=== PATIENT | male | born 1995 | race African-American/Black ===

== ENCOUNTER 2017-02-05 14:14 | Emergency (ER) | payer OTHER ==
[2017-02-05] MEDS ORDERED: Dexamethasone 4 MG TAB ONE (15:34)
[2017-02-05] MEDS ORDERED: Ibuprofen 800 MG TAB ONE (15:34)
== END 2017-02-05 15:30 | disposition home or self-care (01) ==
LOC: MADERS 14:14
DX: J06.9 Acute upper respiratory infection, unspecified (principal)
CPT/HCPCS: 99282; J8540

== ENCOUNTER 2017-06-11 09:42 | Emergency (ER) | payer OTHER ==
[2017-06-11] MEDS ORDERED: Naproxen 500 MG TAB ONE (10:01)
[2017-06-11] MEDS ORDERED: AMOXicillin 250 MG CAP ONE (10:01)
[2017-06-11] MEDS ORDERED: HYDROcodone/Acetaminophen 10/325 mg Tablet ONE (10:01)
== END 2017-06-11 10:05 | disposition home or self-care (01) ==
LOC: MADERS 09:42
DX: J03.90 Acute tonsillitis, unspecified (principal)
CPT/HCPCS: 99283

== ENCOUNTER 2017-09-25 09:10 | Emergency (ER) | payer OTHER | END 2017-09-25 09:35 | disposition home or self-care (01) | LOC: MADERS 09:10 | DX: J02.0 Streptococcal pharyngitis (principal) | CPT/HCPCS: 99282 ==

== ENCOUNTER 2019-10-10 18:17 | Emergency (ER) | payer OTHER ==
[2019-10-11 18:18] LABS: SARS-CoV-2 MS2 Positive; SARS-CoV-2 N Gene Negative; SARS-CoV-2 S Gene Negative; SARS-CoV-2 by NAA Not Detected (NotDetected); SARS-CoV-2 orf1ab Negative
== END 2019-10-10 18:47 | disposition home or self-care (01) ==
LOC: MADERS 18:17
DX: Z20.828 Contact with and (suspected) exposure to other viral communicable diseases (principal)
CPT/HCPCS: 87635; 99281; U0003

== ENCOUNTER 2020-06-11 14:23 | Emergency (ER) | payer OTHER ==
[2020-06-11] MEDS ORDERED: Boostrix 0.5 ML (Tdap) VIAL ONE (14:43)
== END 2020-06-11 15:22 | disposition home or self-care (01) ==
LOC: MADERS 14:23
DX: S91.332A Puncture wound without foreign body, left foot, initial encounter (principal); W45.0XXA Nail entering through skin, initial encounter
CPT/HCPCS: 90471; 90715

== ENCOUNTER 2020-12-11 15:18 | Emergency (ER) | payer OTHER ==
[2020-12-11] MEDS ORDERED: Acetaminophen 500 MG TAB ONE (16:10)
== END 2020-12-11 16:43 | disposition home or self-care (01) ==
LOC: MADERS 15:18
DX: S90.32XA Contusion of left foot, initial encounter (principal); W24.0XXA Contact with lifting devices, not elsewhere classified, initial encounter; Y99.0 Civilian activity done for income or pay

== ENCOUNTER 2021-02-03 07:36 | Emergency (ER) | payer OTHER ==
[2021-02-03] MEDS ORDERED: Acetaminophen 500 MG TAB ONE (07:58)
[2021-02-03] MEDS ORDERED: Ibuprofen 400 MG TAB ONE (08:25)
[2021-02-03 09:31] LABS: SARS-CoV-2 NAA Rapid Test Not Detected (NotDetected)
== END 2021-02-03 10:22 | disposition home or self-care (01) ==
LOC: MADERS 07:36
DX: J10.1 Influenza due to other identified influenza virus with other respiratory manifestations (principal); Z20.822 Contact with and (suspected) exposure to COVID-19
CPT/HCPCS: 0240U; 99283

== ENCOUNTER 2021-05-01 08:03 | Emergency (ER) | payer OTHER, SELFPAY ==
[2021-05-01] MEDS ORDERED: Ibuprofen 800 MG TAB ONE (08:26)
[2021-05-01 20:20] LABS: SARS-CoV-2 PCR by NAA Not Detected (NotDetected)
== END 2021-05-01 09:32 | disposition home or self-care (01) ==
LOC: MADERS 08:03
DX: B34.9 Viral infection, unspecified (principal); Z20.822 Contact with and (suspected) exposure to COVID-19
CPT/HCPCS: 87804; 99283; U0003; U0005

== ENCOUNTER 2021-07-01 19:36 | Emergency (ER) | payer SELFPAY ==
[~2021-07-01 19:36] MED LIST: Sodium Chloride 0.9% 1,000 ML BAG ONE
[2021-07-01] MEDS ORDERED: Ondansetron PF 4 MG/2 ML Vial ONE (20:36)
[2021-07-01] MEDS ORDERED: Sodium Chloride 0.9% 1,000 ML ONE (20:36)
[2021-07-01 20:43] LABS: #Lymphocytes 0.5 thou/uL (1.20-3.40); #Monocytes 0.5 thou/uL (0.11-0.59); #Neutrophils 10.9 thou/uL (1.40-6.50); %Basophils 0.4 % (0.0-1.0); %Eosinophils 0.1 % (0.0-10.0); %Lymphocytes 3.8 % (21.0-51.0); %Monocytes 4.2 % (0.0-10.0); %Neutrophils 91.5 % (42.0-75.0); Hemoglobin 15.4 g/dL (14.0-18.0); Mean Corpuscular HGB CONC 31.6 g/dL (32.0-36.0); Mean Corpuscular Hemoglobin 26.8 pg (27.0-31.0); Mean Corpuscular Volume 84.8 fL (78.0-98.0); Mean Platelet Volume 8.7 fL (7.4-10.4); Platelet Count 327 thou/uL (130-400); RBC Distribution Width 14.3 % (11.5-14.5); Red Blood Cell (RBC) Count 5.76 mill/uL (4.70-6.10)
[2021-07-01 21:02] LABS: ALT (SGPT) 18 U/L (8-55); AST (SGOT) 17 U/L (5-34); Albumin 4.1 g/dL (3.5-5.0); Alkaline Phosphatase 94 U/L (40-110); Anion Gap 18 mmol/L (10-20); BUN (Urea Nitrogen) 14 mg/dL (8.9-20.6); Bilirubin, Total 0.6 mg/dL (0.2-1.2); Calc. Creatinine Clearance 0 mL/min (70-130); Carbon Dioxide 23 mmol/L (22-29); Chloride 105 mmol/L (98-107); Globulin 3.2 g/dL (2.4-3.5); Glucose 112 mg/dL (70-105); Lipase 9 U/L (8-78); Potassium 3.9 mmol/L (3.5-5.1); Protein, Total 7.3 g/dL (6.0-8.3); Sodium 142 mmol/L (136-145)
== END 2021-07-01 22:34 | disposition home or self-care (01) ==
LOC: MADERS 19:36
DX: A08.4 Viral intestinal infection, unspecified (principal)
CPT/HCPCS: 36415; 80053; 83690; 85025; 96374; J2405; J7050